=== PATIENT | female | born 2000 | race Two or more races ===

== ENCOUNTER 2020-12-22 12:26 | Emergency (ER) | payer BC, OTHER ==
[~2020-12-22] VITALS: Ht 157.5 cm; Wt 54.4 kg
[2020-12-22] MEDS ORDERED: chlordiazePOXIDE HCL 5 MG CAP PO ONE (14:15)
[2020-12-22] MEDS ORDERED: SODIUM CHLORIDE 0.9% 1,000 ML IV ONE (14:15)
[2020-12-22] MEDS ORDERED: THIAMINE 100mg/ml INJ (200mg/2ml VIAL) IV ONE (14:15)
[2020-12-22 14:28] VITALS: BP 120/81
== END 2020-12-22 16:05 | disposition home or self-care (01) ==
LOC: ER 12:26
DX: F10.230 Alcohol dependence with withdrawal, uncomplicated (principal)
CPT/HCPCS: 96361; 96374; 99283; J3411; J7030